=== PATIENT | male | born 1950 | race Caucasian/White ===

== ENCOUNTER → 2017-03-23 | Outpatient (CLI) | payer MEDICARE, OTHER | LOC: RT 16:06 | DX: I10 Essential (primary) hypertension (principal); R94.31 Abnormal electrocardiogram [ECG] [EKG] | CPT/HCPCS: 93005 ==

== ENCOUNTER 2021-07-21 20:32 | Emergency (ER) | payer MEDICARE, OTHER ==
[2021-07-21 22:03] LABS: HEMOGLOBIN 14.7 gm/dl (14.0-17.5); RED BLOOD COUNT 4.79 M/UL (4.20-5.50); WHITE BLOOD COUNT 12.2 K/UL (4.5-11.0)
[2021-07-21] MEDS ORDERED: CEPHALEXIN500 M1 PO (22:33)
[2021-07-21] MEDS ORDERED: BACTROBAN OINT22 GM EXT (22:33)
== END 2021-07-21 22:44 | disposition home or self-care (01) ==
LOC: ER1 20:32
PROVIDERS: Physician Assistant Medical
DX: M79.644 Pain in right finger(s) (principal); E11.9 Type 2 diabetes mellitus without complications; I10 Essential (primary) hypertension; Z79.1 Long term (current) use of non-steroidal anti-inflammatories (NSAID); Z88.2 Allergy status to sulfonamides; Z88.8 Allergy status to other drugs, medicaments and biological substances
CPT/HCPCS: 73130; 80053; 85025; 85610; 85652; 86140; 99283

== ENCOUNTER 2021-11-30 17:04 | Emergency (ER) | payer MEDICARE, OTHER ==
[~2021-11-30] VITALS: Ht 177.8 cm; Wt 99.8 kg
[~2021-11-30 17:04] MED LIST: BACTROBAN OINT22 GM EXT; CEPHALEXIN500 M1 PO
[2021-11-30 18:46] LABS: HEMOGLOBIN 15.6 gm/dl (14.0-17.5); RED BLOOD COUNT 5.37 M/UL (4.20-5.50); WHITE BLOOD COUNT 6.6 K/UL (4.5-11.0)
[2021-11-30 19:35] LABS: BUN/CREATININE RATIO 15 (0-10)
[2021-12-01] MEDS ORDERED: LISINOPRIL20 MG PO (14:31)
[2021-12-01] MEDS ORDERED: LEVOTHYROXINE75 MCG PO (14:32)
[2021-12-01] MEDS ORDERED: EFFIENT10 MG PO (14:32)
[2021-12-01] MEDS ORDERED: LATANOPROST2.5 ML EYEBOTH (14:33)
[2021-12-01] MEDS ORDERED: METFORMIN HCL1000 MG PO (14:33)
[2021-12-01] MEDS ORDERED: CRESTOR40 MG PO (14:33)
[2021-12-01] MEDS ORDERED: LOPRESSOR 25 MG25 MG PO (14:34)
[2021-12-01] MEDS ORDERED: FAMOTIDINE20 MG PO (14:34)
[2021-12-01] MEDS ORDERED: JANUVIA100 MG PO (14:35)
[2021-12-02 04:10] LABS: HEMOGLOBIN 14.4 gm/dl (14.0-17.5); RED BLOOD COUNT 4.86 M/UL (4.20-5.50); WHITE BLOOD COUNT 7.2 K/UL (4.5-11.0)
[2021-12-02 04:46] LABS: BUN/CREATININE RATIO 16 (0-10)
[2021-12-03 04:07] LABS: HEMOGLOBIN 14.7 gm/dl (14.0-17.5); RED BLOOD COUNT 4.94 M/UL (4.20-5.50); WHITE BLOOD COUNT 7.3 K/UL (4.5-11.0)
[2021-12-03 04:24] LABS: BUN/CREATININE RATIO 13 (0-10)
[2021-12-04 04:40] LABS: HEMOGLOBIN 15.3 gm/dl (14.0-17.5); RED BLOOD COUNT 5.18 M/UL (4.20-5.50); WHITE BLOOD COUNT 8.5 K/UL (4.5-11.0)
[2021-12-04 05:01] LABS: BUN/CREATININE RATIO 15 (0-10)
== END 2021-12-04 17:12 | disposition home or self-care (01) ==
LOC: ER1 17:04
PROVIDERS: Emergency Medicine; Internal Medicine; Physician Assistant Medical
DX: H53.2 Diplopia (principal); I25.10 Atherosclerotic heart disease of native coronary artery without angina pectoris; E11.9 Type 2 diabetes mellitus without complications; E78.5 Hyperlipidemia, unspecified; I10 Essential (primary) hypertension
CPT/HCPCS: ECHO; 70450; 70496; 70498; 70551; 80048; 82550; 82553; 82962; 83735; 83874; 84484; 85025; 85027; 93005; 93306; 99284; J1650; Q9967